=== PATIENT | female | born 1990 | race Caucasian/White ===

== ENCOUNTER → 2017-01-15 | Outpatient (CLI) | payer OTHER ==
[~2017-01-15] MED LIST: ACHYD1T PO; CPR500T PO; FERR-74 PO; IBP800T PO; IBUP-1773 PO; PREN-93 PO; PREN1TAB39; RT-ALBUINH IH; SULF1TAB38 PO
--- OUTSIDE RECORDS SUMMARY | 2017-01-15 15:34 | XMS REPORT | Continuity of Care Document ---
Author Author [facility] Address Unknown Phone Unavailable Allergies Active Description Code Type Severity Reaction Onset Reported/Identified Relationship to Patient Clinical Status Yes No Known Drug Allergies [id number] Drug Allergy Unknown N/ A 02/17/2011 Medications Problems Date Dx Coded Attending Type Code Diagnosis Diagnosed By 03/14/2007 Ot 382.9 03/14/2007 Ot 388.70 07/02/2010 FIDEL SANITATION TRUCK DRIVER, BERNABE R 296.90 MO MOOD DIS NOS 07/02/2010 FIDEL SANITATION TRUCK DRIVER, BERNABE R 466.0 Bronchitis, Acute 07/02/2010 FIDEL SANITATION TRUCK DRIVER, BERNABE R 296.90 MO MOOD DIS NOS 07/02/2010 FIDEL SANITATION TRUCK DRIVER, BERNABE R 466.0 Bronchitis, Acute 07/02/2010 MERIDA DO, ELMIRA K 296.90 MO MOOD DIS NOS 07/02/2010 MERIDA DO, ELMIRA K 466.0 Bronchitis, Acute 07/02/2010 MERIDA DO, ELMIRA K 296.90 MO MOOD DIS NOS 07/02/2010 MERIDA DO, ELMIRA K 466.0 Bronchitis, Acute 02/04/2011 FIDEL SANITATION TRUCK DRIVER, BERNABE R 786.2 Cough 02/04/2011 FIDEL SANITATION TRUCK DRIVER, BERNABE R V72.42 Test Positive Result 02/04/2011 FIDEL SANITATION TRUCK DRIVER, BERNABE R 786.2 Cough 02/04/2011 FIDEL SANITATION TRUCK DRIVER, BERNABE R V72.42 Test Positive Result 02/04/2011 MERIDA DO, ELMIRA K 786.2 Cough 02/04/2011 MERIDA DO, ELMIRA K V72.42 Test Positive Result 02/04/2011 MERIDA DO, ELMIRA K 786.2 Cough 02/04/2011 MERIDA DO, ELMIRA K V72.42 Test Positive Result 02/13/2011 FIDEL SANITATION TRUCK DRIVER, BERNABE R 640.00 Threatened 02/13/2011 FIDEL SANITATION TRUCK DRIVER, BERNABE R 640.00 Threatened 02/13/2011 MERIDA DO, ELMIRA K 640.00 Threatened 02/13/2011 MERIDA DO, ELMIRA K 640.00 Threatened 02/17/2011 Ot 640.03 02/20/2011 Ot 623.8 02/20/2011 Ot 640.03 03/04/2011 BERNABE PARRA APRN R 634.92 Complete (sab) 03/04/2011 FIDEL MYRICK, BERNABE R 634.92 Complete (sab) 03/04/2011 ELMIRA MERIDA DO 634.92 Complete (sab) 03/04/2011 ELMIRA MERIDA DO 634.92 Complete (sab) 04/28/2011 FIDEL SANITATION TRUCK DRIVER, BERNABE R 616.0 Cervicitis And Endocervicitis 04/28/2011 FIDEL SANITATION TRUCK DRIVER, BERNABE R 625.0 DYSPAREUNIA 04/28/2011 FIDEL SANITATION TRUCK DRIVER, BERNABE R V72.31 Performance Improvement Analyst Exam, Routine 04/28/2011 FIDEL CASTAÑEDAN, BERNABE R V74.5 Std Screen 04/28/2011 FIDEL MYRICK, BERNABE R 616.0 Cervicitis And Endocervicitis 04/28/2011 FIDEL MYRICK, BERNABE R 625.0 DYSPAREUNIA 04/28/2011 FIDEL MYRICK, BERNABE R V72.31 Performance Improvement Analyst Exam, Routine 04/28/2011 FIDEL MYRICK, BERNABE R V74.5 Std Screen 04/28/2011 SKYLA MERIDA DOA K 616.0 Cervicitis And Endocervicitis 04/28/2011 FUAD KIDD ELMIRA K 625.0 DYSPAREUNIA 04/28/2011 SKYLA MERIDA DOA K V72.31 Performance Improvement Analyst Exam, Routine 04/28/2011 SKYLA MERIDA DOA K V74.5 Std Screen 04/28/2011 SKYLA MERIDA DOA K 616.0 Cervicitis And Endocervicitis 04/28/2011 FUAD KIDD ELMIRA K 625.0 DYSPAREUNIA 04/28/2011 FUAD KIDD ELMIRA K V72.31 Performance Improvement Analyst Exam, Routine 04/28/2011 FUAD KIDD ELMIRA K V74.5 Std Screen 09/22/2011 FIDEL MYRICK, BERNABE R 625.3 Dysmenorrhea 09/22/2011 FIDEL MYRICK, BERNABE R 786.05 Shortness Of Breath 09/22/2011 FIDEL MYRICK, BERNABE R 625.3 Dysmenorrhea 09/22/2011 FIDEL SANITATION TRUCK DRIVER, BERNABE R 786.05 Shortness Of Breath 09/22/2011 MERIDA DO, ELMIRA K 625.3 Dysmenorrhea 09/22/2011 MERIDA DO, ELMIRA K 786.05 Shortness Of Breath 09/22/2011 MERIDA DO, ELMIRA K 625.3 Dysmenorrhea 09/22/2011 MERIDA DO, ELMIRA K 786.05 Shortness Of Breath 11/16/2011 FIDEL SANITATION TRUCK DRIVER, BERNABE R 626.0 Absence Of Menstruation 11/16/2011 FIDEL SANITATION TRUCK DRIVER, BERNABE R V72.42 Examination Or Test Positive Result 11/16/2011 FIDEL SANITATION TRUCK DRIVER, BERNABE R 626.0 Absence Of Menstruation 11/16/2011 FIDEL SANITATION TRUCK DRIVER, BERNABE R V72.42 Examination Or Test Positive Result 11/16/2011 MERIDA DO, ELMIRA K 626.0 Absence Of Menstruation 11/16/2011 MERIDA DO, ELMIRA K V72.42 Examination Or Test Positive Result 11/16/2011 MERIDA DO, ELMIRA K 626.0 Absence Of Menstruation 11/16/2011 MERIDA DO, ELMIRA K V72.42 Examination Or Test Positive Result 12/15/2011 FIDEL CASTAÑEDAN, BERNABE R V04.81 Flu Dx (3 Yrs And Above, Im) 12/15/2011 FIDEL MYRICK BERNABE R V22.1 , NORMAL OTHER 12/15/2011 FIDEL CASTAÑEDAN, BERNABE R V23.2 , HIGH RISK W/ HX OF 12/15/2011 FIDEL CASTAÑEDAN, BERNABE R V04.81 Flu Dx (3 Yrs And Above, Im) 12/15/2011 FIDEL MYRICK BERNABE R V22.1 , NORMAL OTHER 12/15/2011 FIDEL SANITATION TRUCK DRIVER, BERNABE R V23.2 , HIGH RISK W/ HX OF 12/15/2011 MERIDA DO, ELMIRA K V04.81 Flu Dx (3 Yrs And Above, Im) 12/15/2011 MERIDA DO, ELMIRA K V22.1 , NORMAL OTHER 12/15/2011 MERIDA DO, ELMIRA K V23.2 , HIGH RISK W/ HX OF 12/15/2011 MERIDA DO, ELMIRA K V04.81 Flu Dx (3 Yrs And Above, Im) 12/15/2011 MERIDA DO, ELMIRA K V22.1 , NORMAL OTHER 12/15/2011 ELMIRA MERIDA DO V23.2 , HIGH RISK W/ HX OF 01/05/2012 BERNABE PARRA APRN V76.9 CANCER SCREENING, [facility] 01/05/2012 BERNABE PARRA APRN V76.9 CANCER SCREENING, [facility] 01/05/2012 ELMIRA MERIDA DO V76.9 CANCER SCREENING, [facility] 01/05/2012 ELMIRA MERIDA DO V76.9 CANCER SCREENING, [facility] 01/26/2012 BRENABE PARRA APRN R 564.00 CONSTIPATION 01/26/2012 BERNABE PARRA APRN R 564.00 CONSTIPATION 01/26/2012 ELMIRA MERIDA DO K 564.00 CONSTIPATION 01/26/2012 ELMIRA MERIDA DO 564.00 CONSTIPATION 02/08/2012 BERNABE PARRA APRN R 786.2 Cough 02/08/2012 BERNABE PARRA APRN R 786.2 Cough 02/08/2012 ELMIRA MERIDA DO K 786.2 Cough 02/08/2012 ELMIRA MERIDA DO 786.2 Cough 03/29/2012 BERNABE PARRA APRN R 784.0 Headache 03/29/2012 BERNABE PARRA APRN R 784.0 Headache 03/29/2012 ELMIRA MERIDA DO K 784.0 Headache 03/29/2012 ELMIRA MERIDA DO K 784.0 Headache 07/15/2012 Ot 648.91 OTH CURR COND-DELIVERED 07/15/2012 Ot 659.71 ABN DEL FET HT RT/RHYTHM,W OR W/O MENTIO 07/15/2012 Ot V02.51 GROUP B STREPT CARRIER/SUSPECTED CARRIER 07/15/2012 Ot V06.1 [id number], COMBINED [ 07/15/2012 Ot V27.0 DELIVER-SINGLE LIVEBORN 10/31/2012 Ot 599.0 URIN TRACT INFECTION NOS 10/31/2012 Ot 787.01 NAUSEA WITH VOMITING 11/03/2012 Ot 041.49 OTHER AND UNSPECIFIED ESCHERICHIA COLI [ 11/03/2012 Ot 536.2 PERSISTENT VOMITING 11/03/2012 Ot 590.80 PYELONEPHRITIS NOS 10/31/2014 BERNABE PARRA APRN R 780.4 DIZZINESS AND GIDDINESS 10/31/2014 BERNABE PARRA APRN R 784.0 HEADACHE 10/31/2014 GABRIEL PARRA APRNINA R 780.4 DIZZINESS AND GIDDINESS 10/31/2014 FIDEL CASTAÑEDAN, BERNABE R 784.0 HEADACHE 10/31/2014 FUAD KIDD, ELMIRA K 780.4 DIZZINESS AND GIDDINESS 10/31/2014 MERIDA DO, ELMIRA K 784.0 HEADACHE 10/31/2014 MERIDA DO, ELMIRA K 780.4 DIZZINESS AND GIDDINESS 10/31/2014 FUAD KIDD, ELMIRA K 784.0 HEADACHE 11/27/2014 BERNABE PARRA APRN R V72.42 EXAMINATION OR TEST POSITIVE RESULT 11/27/2014 FUAD KIDD ELMIRA K V72.42 EXAMINATION OR TEST POSITIVE RESULT 11/27/2014 FUAD KIDD, ELMIRA K V72.42 EXAMINATION OR TEST POSITIVE RESULT 12/03/2014 Ot V22.1 12/17/2014 FUAD KIDDSKYLAA K 641.90 COMPL OF - BLEEDING 12/17/2014 FUAD KIDDSKYLAA K V74.5 STD SCREEN 12/17/2014 FUAD KIDDSKYLAA K V76.2 CERVICAL CANCER SCREENING (PAP SMEAR) 12/17/2014 FUAD KIDDSKYLAA K 641.90 COMPL OF - BLEEDING 12/17/2014 FUAD KIDDSKYLAA K V74.5 STD SCREEN 12/17/2014 FUAD KIDDSKYLAA K V76.2 CERVICAL CANCER SCREENING (PAP SMEAR) 04/09/2015 Ot V22.1 04/09/2015 BERNABE PARRA SANITATION TRUCK DRIVER Ot V28.89 04/09/2015 FUAD KIDDELMIRA K Ot 641.93 04/11/2015 MARJORIE GALLARDO A SANITATION TRUCK DRIVER Ot V22.1 04/11/2015 PAULINA MARJORIE A SANITATION TRUCK DRIVER Ot V28.81 04/19/2015 Ot V22.1 04/19/2015 BERNABE PARRA R SANITATION TRUCK DRIVER Ot V28.89 04/19/2015 FUAD KIDDSKYLAA K Ot 641.93 04/19/2015 MARJORIE GALLARDO A SANITATION TRUCK DRIVER Ot V22.1 04/19/2015 PAULINA MARJORIE A SANITATION TRUCK DRIVER Ot V28.81 04/19/2015 BERNABE PARRA R SANITATION TRUCK DRIVER Ot V28.89 04/19/2015 Ot V22.1 04/19/2015 BERNABE PARRA R SANITATION TRUCK DRIVER Ot V28.89 04/19/2015 MERIDA DO, ELMIRA K Ot 641.93 04/19/2015 PAULINA, MARJORIE A SANITATION TRUCK DRIVER Ot V22.1 04/19/2015 PAULINA, MARJORIE A SANITATION TRUCK DRIVER Ot V28.81 04/30/2015 PAULINA, MARJORIE A SANITATION TRUCK DRIVER Ot V22.1 04/30/2015 PAULINA, MARJORIE A SANITATION TRUCK DRIVER Ot V28.81 05/02/2015 BERNABE PARRA R SANITATION TRUCK DRIVER Ot V28.89 05/02/2015 MERIDA DO, ELMIRA K Ot 641.93 05/09/2015 PAULINA, MARJORIE A SANITATION TRUCK DRIVER Ot V22.1 05/09/2015 PAULINA, MARJORIE A SANITATION TRUCK DRIVER Ot V28.81 05/10/2015 MERIDA DO, ELMIRA K Ot V22.1 06/27/2015 RADHA BAHENA MD Ot 079.99 VIRAL INFECTION NOS 06/27/2015 RADHA BAHENA MD Ot 644.03 THRT VALENTINE LABOR-ANTEPART 06/27/2015 RADHA BAHENA MD Ot 647.63 OTH VIRAL DIS-ANTEPARTUM 06/27/2015 RADHA BAHENA MD Ot 079.99 06/27/2015 RADHA BAHENA MD Ot 644.03 06/27/2015 RADHA BAHENA MD Ot 647.63 07/02/2015 Ot V22.1 07/02/2015 BERNABE PARRA SANITATION TRUCK DRIVER Ot V28.89 07/02/2015 MERIDA DO, ELMIRA K Ot 641.93 07/02/2015 PAULINA, MARJORIE A SANITATION TRUCK DRIVER Ot V22.1 07/02/2015 PAULINA, MARJORIE A SANITATION TRUCK DRIVER Ot V28.81 07/02/2015 MERIDA DO, ELMIRA K Ot V22.1 07/02/2015 MERIDA DO, ELMIRA K Ot 648.83 07/02/2015 MERIDA DO, ELMIRA K Ot 648.83 07/02/2015 MERIDA DO, ELMIRA K Ot V22.1 07/02/2015 MERIDA DO, ELMIRA K Ot V22.1 07/20/2015 RADHA BAHENA MD Ot V22.1 SUPERVIS OTH NORMAL PREG 07/31/2015 MERIDA DO, ELMIRA K Ot 285.9 ANEMIA NOS 07/31/2015 FUAD KIDD ELMIRA Duncan Ot 645.11 POST TERM PREG, DELIV W/WO MENTION OF AN 07/31/2015 ELMIRA MERIDA DO Ot 648.21 ANEMIA-DELIVERED 07/31/2015 ELMIRA MERIDA DO Ot 648.81 ABN GLUCOSE CARLOS-DELIV 07/31/2015 SKYLA MERIDA DOA Duncan Ot 648.91 OTH CURR COND-DELIVERED 07/31/2015 SKYLA MERIDA DOA Duncan Ot V02.51 GROUP B STREPT CARRIER/SUSPECTED CARRIER 07/31/2015 ELMIRA MERIDA DO Ot V27.0 DELIVER-SINGLE LIVEBORN 01/20/2016 Ot 625.3 01/20/2016 Ot V22.1 01/20/2016 BERNABE PARRA APRN Ot V28.89 01/20/2016 ELMIRA MERIDA DO Ot 641.93 01/20/2016 MARJORIE GALLARDO SANITATION TRUCK DRIVER Ot V22.1 01/20/2016 MARJORIE GALLARDO SANITATION TRUCK DRIVER Ot V28.81 01/20/2016 ELMIRA MERIDA DO Ot V22.1 01/20/2016 ELMIRA MERIDA DO Ot 648.83 01/20/2016 Ot V22.1 01/20/2016 BERNABE PARRA SANITATION TRUCK DRIVER Ot V28.89 01/20/2016 ELMIRA MERIDA DO Ot 641.93 01/20/2016 MARJORIE GALLARDO SANITATION TRUCK DRIVER Ot V22.1 01/20/2016 MARJORIE GALLARDO SANITATION TRUCK DRIVER Ot V28.81 01/20/2016 ELMIRA MERIDA DO Ot V22.1 01/20/2016 ELMIRA MERIDA DO Ot 648.83 05/25/2016 Ot V22.1 SUPERVIS OTH NORMAL PREG 05/25/2016 BERNABE PARRA SANITATION TRUCK DRIVER Ot V28.89 OTHER SPECIFIED SCREENING 05/25/2016 ELMIRA MERIDA DO Ot 641.93 ANTEPART HEM NOS-ANTEPAR 05/25/2016 MARJORIE GALLARDO SANITATION TRUCK DRIVER Ot V22.1 SUPERVIS OTH NORMAL PREG 05/25/2016 MARJORIE GALLARDO SANITATION TRUCK DRIVER Ot V28.81 ENCOUNTER FOR ANATOMIC SURVEY 05/25/2016 ELMIRA MERIDA DO Ot V22.1 SUPERVIS OTH NORMAL PREG 05/25/2016 ELMIRA MERIDA DO Ot 648.83 ABN GLUCOSE-ANTEPARTUM 05/25/2016 ELMIRA MERIDA DO Ot 648.83 ABN GLUCOSE-ANTEPARTUM 05/25/2016 ELMIRA MERIDA DO Ot V22.1 SUPERVIS OTH NORMAL PREG 05/25/2016 ELMIRA MERIDA DO Ot 648.83 ABN GLUCOSE-ANTEPARTUM 05/25/2016 ELMIRA MERIDA DO Ot V22.1 SUPERVIS OTH NORMAL PREG 06/19/2016 ELMIRA MERIDA DO Ot V22.1 SUPERVIS OTH NORMAL PREG 06/19/2016 ELMIRA MERIDA DO Ot 648.83 ABN GLUCOSE-ANTEPARTUM Procedures Code Description Performed By Performed On 72.1 07/13/2012 60230 UA W/ CULTURE IF INDICATED 10/31/2014 13873 TEST, URINE (IN-HOUSE) 10/31/2014 80540 CULTURE URINE 75206 OB - EARLY <14 WEEKS 11/27/2014 68916 TEST, URINE (IN-HOUSE) 11/27/2014 91002 UA OB DIP 2014 73.4 07/29/2015 73.59 07/29/2015 Results Encounters ACCT No. Visit Date/Time Discharge Status Pt. Type Provider Facility Loc./Unit Complaint [id number] 02/04/2015 14:10:00 02/04/2015 23: 59:59 CLS Outpatient ELMIRA MERIDA DO [id number] 12/17/2014 14:11:00 12/17/2014 23: 59:59 CLS Outpatient ELMIRA MERIDA DO [id number] 11/27/2014 13:47:00 11/27/2014 23: 59:59 CLS Outpatient BERNABE PARRA APRN [id number] 10/31/2014 13:41:00 10/31/2014 23: 59:59 CLS Outpatient BERNABE PARRA APRN
--- NOTE | 2017-01-15 16:09 | Diagnostic Imaging Report ---
PROCEDURE: US OB single fetus <14 wks. TECHNIQUE: Multiple real-time grayscale images were obtained over the gravid uterus in various projections. INDICATION: Threatened miscarriage. FINDINGS: Uterus measures 9.7 x 5.5 x 6.6 cm. Endometrial stripe is 12 mm. There is no evidence of intrauterine . Transvaginal imaging failed to demonstrate the ovaries. There is no free fluid or adnexal masses demonstrated. IMPRESSION: No findings are seen to suggest intrauterine at this time. Dictated by: Dictated on workstation # [id number]
== END ==
LOC: RAD 15:27
PROVIDERS: ATTEND Family Medicine
DX: O20.0 Threatened abortion (principal)
CPT/HCPCS: 36415; 76801; 84702

== ENCOUNTER 2023-02-13 22:48 | Emergency (ER) | payer BC ==
[~2023-02-13] VITALS: Ht 167 cm; Wt 72.5 kg
[~2023-02-13 22:48] MED LIST changes: -FERR-74 PO; +FERR325T18 PO
[2023-02-13] MEDS ORDERED: LACTATED RINGERS 1,000 ML IV ONE (23:15)
[2023-02-13 23:44] LABS: BILIRUBIN,URINE NEGATIVE (NEGATIVE); CLARITY,URINE CLEAR; COLOR,URINE YELLOW; GLUCOSE, URINE (UA) NEGATIVE (NEGATIVE); KETONES,URINE NEGATIVE (NEGATIVE); LEUKOCYTE ESTERASE ,URINE NEGATIVE (NEGATIVE); NITRITE,URINE NEGATIVE (NEGATIVE); PROTEIN,URINE NEGATIVE (NEGATIVE)
--- NOTE | 2023-02-13 23:48 | ED Psychosocial ---
General Stated Complaint: ATE EDIBLE - SUICIDAL IDEATION Source: patient History of Present Illness Date Seen by Provider: Feb 13, 2023 Time Seen by Provider: 22:57 Initial Comments PT ARRIVES VIA POV FROM HOME WITH MOTHER PT STATES SHE ATE AN "EDIBLE" MARIJUANA THAT SHE GOT FROM A GAS STATION AROUND 2100 SHE STATES SHE IS FEELING SUICIDAL BUT DOES NOT HAVE A PLAN SHE DENIES ANY PRIOR USE OF ANY DRUGS, SHE ADMITS TO ALCOHOL USE, BUT NONE TONIGHT SHE STATES SHE IS FEELING DIZZY AND WEAK AND TIRED. SHE IS ALSO VERY ANXIOUS NO NAUSEA/VOMITING/DIARRHEA OR ABDOMINAL PAIN C/O DRY MOUTH AND IS CONSTANTLY LICKING HER LIPS SHE HAS HAD PRIOR SUICIDAL THOUGHTS, BUT NO PRIOR ATTEMPT. DENIES ANY SPECIFIC TRIGGER. IS AT HOME WITH 2 CHILDREN LMP --ENDED ON WEDNESDAY, NORMAL. NO CONTROL PCP: [facility] Allergies and Home Medications Allergies Coded Allergies: No Known Drug Allergies (Unverified , 02/17/11) Patient Home Medication List Home Medication List Reviewed: Yes Ferrous Sulfate (Ferrous Sulfate) 325 Mg Tablet, 325 MG PO DAILY Prescribed by: ELMIRA MERIDA on 07/31/15 0855 Ibuprofen (Ibuprofen) 600 Mg Tablet, 600 MG PO Q6H Prescribed by: ELMIRA MERIDA on 07/31/15 0855 Pnv95/Ferrous Fumarate/FA ( Multivitamins Tablet) 1 Each Tablet, 1 EACH PO DAILY Prescribed by: KRISTAL JEAN on 06/27/15 1348 Review of Systems Constitutional: see HPI, dizziness, malaise, weakness EENTM: no symptoms reported Respiratory: no symptoms reported Cardiovascular: no symptoms reported Gastrointestinal: no symptoms reported Genitourinary: no symptoms reported Musculoskeletal: no symptoms reported Skin: no symptoms reported Psychiatric/Neurological: See HPI, Anxiety Past Qfqotow-Pfaeek-Khvmud Hx Patient Social History Tobacco Use?: No Additional substance use comme: HAD "EDIBLE" MARIJUANA 02/13/23 Alcohol Use?: Yes Alcohol Frequency: Once in a while Immunizations Up To Date Tetanus Booster (TDap): Less than 5yrs Past Medical History Surgeries: No Respiratory: No Cardiac: No Neurological: No Hx : 3 Hx Para: 2 Hx Total # of Abortions (Sp): 1 (ELECTIVE AB) Reproductive Disorders: No Sexually Transmitted Disease: No Genitourinary: No Gastrointestinal: No Musculoskeletal: No Endocrine: No HEENT: No Cancer: No Psychosocial: Yes (SUICIDAL IDEATION) Integumentary: No Blood Disorders: No Adverse Reaction/Blood Tranf: No Family Medical History Patient reports no known family medical history. Physical Exam Vital Signs - First Documented 02/13/23 23:00 Temp 36.7 Pulse 131 Resp 16 B/P (MAP) 133/85 (101) Pulse Ox 100 O2 Delivery Room Air Capillary Refill : Height, Weight, BMI Height: 5'4.00" Weight: 202lbs. oz. 91.122594wy; BMI Method:Estimated General Appearance: WD/WN, other (ANXIOUS, TREMULOUS, KEEPS EYES CLOSED, CONSTANT LIP LICKING) HEENT: PERRL/EOMI, other (LIPS CRACKED AND DRIED) Neck: normal inspection Respiratory: normal breath sounds, other (HYPERVENTILATING ON ARRIVAL) Cardiovascular: no murmur, tachycardia Gastrointestinal: non tender, soft Extremities: normal inspection, normal capillary refill Neurologic/Psychiatric: no motor/sensory deficits, alert, oriented x 3 Appearance/Memory: no memory impairment Behavior/Eye Contact: cooperative, avoids eye contact Thoughts/Hallucinations: no apparent hallucination Skin: normal color, warm/dry Progress/Results/Core Measures Results/Orders Lab Results Laboratory Tests Test 02/13/23 23:36 02/13/23 23:39 02/13/23 23:44 Range/Units Urine Color YELLOW Urine Clarity CLEAR Urine pH 6.0 5-9 Urine Specific [place] 1.025 H 1.016-1.022 Urine Protein NEGATIVE NEGATIVE Urine Glucose (UA) NEGATIVE NEGATIVE Urine Ketones NEGATIVE NEGATIVE Urine Nitrite NEGATIVE NEGATIVE Urine Bilirubin NEGATIVE NEGATIVE Urine Urobilinogen 0.2 < = 1.0 MG/DL Urine Leukocyte Esterase NEGATIVE NEGATIVE Urine RBC (Auto) NEGATIVE NEGATIVE Urine RBC NONE /HPF Urine WBC NONE /HPF Urine Crystals NONE /LPF Urine Bacteria NEGATIVE /HPF Urine Casts NONE /LPF Urine Mucus NEGATIVE /LPF Urine Culture Indicated NO Urine Opiates Screen NEGATIVE NEGATIVE Urine Oxycodone Screen NEGATIVE NEGATIVE Urine Methadone Screen NEGATIVE NEGATIVE Urine Propoxyphene Screen NEGATIVE NEGATIVE Urine Barbiturates Screen NEGATIVE NEGATIVE Ur Tricyclic Antidepressants Screen NEGATIVE NEGATIVE Urine Phencyclidine Screen NEGATIVE NEGATIVE Urine Amphetamines Screen NEGATIVE NEGATIVE Urine Methamphetamines Screen NEGATIVE NEGATIVE Urine Benzodiazepines Screen NEGATIVE NEGATIVE Urine Cocaine Screen NEGATIVE NEGATIVE Urine Cannabinoids Screen POSITIVE H NEGATIVE Influenza Type A (RT-PCR) Not Detected Not Detecte Influenza Type B (RT-PCR) Not Detected Not Detecte SARS-CoV-2 RNA (RT-PCR) Not Detected Not Detecte White Blood Count 6.5 4.3-11.0 10^3/uL Red Blood Count 4.46 3.80-5.11 10^6/uL Hemoglobin 13.0 11.5-16.0 g/dL Hematocrit 39 35-52 % Mean Corpuscular Volume 87 80-99 fL Mean Corpuscular Hemoglobin 29 25-34 pg Mean Corpuscular Hemoglobin Concent 34 32-36 g/dL Red Cell Distribution Width 12.5 10.0-14.5 % Platelet Count 256 130-400 10^3/uL Mean Platelet Volume 9.3 9.0-12.2 fL Immature Granulocyte % (Auto) 0 % Neutrophils (%) (Auto) 52 42-75 % Lymphocytes (%) (Auto) 36 12-44 % Monocytes (%) (Auto) 9 0-12 % Eosinophils (%) (Auto) 3 0-10 % Basophils (%) (Auto) 0 0-10 % Neutrophils # (Auto) 3.4 1.8-7.8 10^3/uL Lymphocytes # (Auto) 2.3 1.0-4.0 10^3/uL Monocytes # (Auto) 0.6 0.0-1.0 10^3/uL Eosinophils # (Auto) 0.2 0.0-0.3 10^3/uL Basophils # (Auto) 0.0 0.0-0.1 10^3/uL Immature Granulocyte # (Auto) 0.0 0.0-0.1 10^3/uL Percent Immature Platelet Fraction 1.3 0.0-7.6 % Sodium Level 138 135-145 MMOL/L Potassium Level 4.1 3.6-5.0 MMOL/L Chloride Level 106 98-107 MMOL/L Carbon Dioxide Level 20 L 21-32 MMOL/L Anion Gap 12 5-14 MMOL/L Blood Urea Nitrogen 19 H 7-18 MG/DL Creatinine 0.87 0.60-1.30 MG/DL Estimat Glomerular Filtration Rate 90 BUN/Creatinine Ratio 22 Glucose Level 138 H 70-105 MG/DL Calcium Level 9.2 8.5-10.1 MG/DL Corrected Calcium 9.2 8.5-10.1 MG/DL Total Bilirubin 0.1 0.1-1.0 MG/DL Aspartate Amino Transf (AST/SGOT) 17 5-34 U/L Alanine Aminotransferase (ALT/SGPT) 25 0-55 U/L Alkaline Phosphatase 60 40-136 U/L Total Protein 7.0 6.4-8.2 GM/DL Albumin 4.0 3.2-4.5 GM/DL Salicylates Level < 5.0 L 5.0-20.0 MG/DL Acetaminophen Level < 10 L 10-30 UG/ML Serum Alcohol < 10 <10 MG/DL My Orders Orders - NAVA FERNANDEZ DO Ed Iv/Invasive Line Start (02/13/23 22:58) Urine Bedside (02/13/23 22:58) Ekg Tracing (02/13/23 22:58) Monitor-Rhythm Ecg Trace Only (02/13/23 22:58) Cbc With Automated Diff (02/13/23 22:58) Comprehensive Metabolic Panel (02/13/23 22:58) Covid 19 Inhouse Test (02/13/23 22:58) Alcohol (02/13/23 22:58) Drug Screen Stat (Urine) (02/13/23 22:58) Ua Culture If Indicated (02/13/23 22:58) Influenza A And B By Pcr (02/13/23 22:58) Isolation Central Supply Req (02/13/23 22:58) Ed Iv/Invasive Line Start (02/13/23 23:12) Lactated Ringers (Lr 1000 Ml Iv Solution (02/13/23 23:15) Salicylate (02/13/23 23:44) Acetaminophen (02/13/23 23:44) Ed Iv/Invasive Line Start (02/14/23 00:39) Lactated Ringers (Lr 1000 Ml Iv Solution (02/14/23 00:45) Medications Given in ED Current Medications Medications Dose Ordered Sig/Moni Route Start Time Stop Time Status Last Admin Dose Admin Lactated Ringer's 1,000 ml @ 0 mls/hr Q0M ONCE IV 02/13/23 23:15 02/13/23 23:16 DC 02/13/23 23:40 0 MLS/HR Lactated Ringer's 1,000 ml @ 0 mls/hr Q0M ONCE IV 02/14/23 00:45 02/14/23 00:46 DC 02/14/23 01:12 0 MLS/HR Vital Signs/I&O 02/13/23 23:00 Temp 36.7 Pulse 131 Resp 16 B/P (MAP) 133/85 (101) Pulse Ox 100 O2 Delivery Room Air Progress Progress Note : Progress Note PLACED IN SECURE ROOM GIVEN: IV FLUIDS 0045--RN CONTACTING SAVE LINE 0250--MENTAL HEALTH SCREEN COMPLETE. PT IS NO LONGER SUICIDAL, AND FEELS FINE NOW, JUST FEELS TIRED. PT IS BEING SENT HOME WITH A SAFETY PLAN. 0315--HAVE RECEIVED SAFETY PLAN FROM MENTAL HEALTH SCREENER. PT STATES SHE FEELS MUCH BETTER AT TIME OF DISMISSAL, SHE IS NO LONGER TREMULOUS, SHE FEELS COMFORTABLE GOING H9OME. HR DOWN TO LESS THAN 100, BP STABLE DISCUSSED TEST RESULTS, AND PLAN OF CARE WITH PT AND MOTHER, AND ARE AGREEABLE TO PLAN. REVIEWED PRIOR RECORDS--MOST ARE ADMITS FOR , WITH ONE ADMIT FOR P YELONEPHRITIS. NO VISITS HERE SINCE DELIVERY IN 2014. Initial ECG Impression Date: Feb 13, 2023 Initial ECG Impression Time: 23:09 Initial ECG Rate: 125 Initial ECG Rhythm: S.Tach Initial ECG Impression: Nonspecific Changes Initial ECG Comparisson: No Previous ECG Available Comment INTERPRETED BY ME Departure Impression Primary Impression: Suicidal ideation Additional Impression: INGESTION OF MARIJUANA EDIBLE Disposition: 01 HOME, SELF-CARE Condition: Stable Departure-Patient Inst. Decision time for Depature: 02:55 Referrals: NO,LOCAL PHYSICIAN (PCP/Family) Primary Care Physician Patient Instructions: Marijuana Use and Addiction (DC), Suicide Prevention, ALCOHOL AND SUBSTANCE ABUSE Add. Discharge Instructions: NO DRUGS OR ALCOHOL LOTS OF FLUIDS FOLLOW UP WITH MENTAL HEALTH ARRANGED. RETURN TO ER IF YOUR SYMPTOMS WORSEN. NAVA FERNANDEZ DO Feb 13, 2023 23:47
[2023-02-13 23:56] LABS: BASOPHILS % (AUTO) 0 % (0-10); EOSINOPHILS # (AUTO) 0.2 10^3/uL (0.0-0.3)
[2023-02-13 23:58] LABS: EOSINOPHILS % (AUTO) 3 % (0-10); HEMATOCRIT 39 % (35-52); LYMPHOCYTES # (AUTO) 2.3 10^3/uL (1.0-4.0); LYMPHOCYTES % (AUTO) 36 % (12-44); MEAN CORPUSCULAR HEMOGLOBIN 29 pg (25-34); MEAN CORPUSCULAR HGB CONC 34 g/dL (32-36); MEAN CORPUSCULAR VOLUME 87 fL (80-99); MEAN PLATELET VOLUME 9.3 fL (9.0-12.2); MONOCYTES # (AUTO) 0.6 10^3/uL (0.0-1.0); MONOCYTES % (AUTO) 9 % (0-12); NEUTROPHILS # (AUTO) 3.4 10^3/uL (1.8-7.8); NEUTROPHILS % (AUTO) 52 % (42-75); PLATELET COUNT 256 10^3/uL (130-400); WHITE BLOOD COUNT 6.5 10^3/uL (4.3-11.0)
[2023-02-14 00:15] LABS: BACTERIA,URINE NEGATIVE /HPF
[2023-02-14 00:15] LABS: CHLORIDE 106 MMOL/L (98-107); POTASSIUM 4.1 MMOL/L (3.6-5.0); SODIUM 138 MMOL/L (135-145)
[2023-02-14 00:16] LABS: CALCIUM 9.2 MG/DL (8.5-10.1)
[2023-02-14 00:18] LABS: GLUCOSE 138 MG/DL (70-105)
[2023-02-14 00:19] LABS: CARBON DIOXIDE 20 MMOL/L (21-32)
[2023-02-14 00:20] LABS: BILIRUBIN,TOTAL 0.1 MG/DL (0.1-1.0)
[2023-02-14 00:21] LABS: ALKALINE PHOSPHATASE 60 U/L (40-136); CREATININE SERUM 0.87 MG/DL (0.60-1.30); GFR ESTIMATED 90
[2023-02-14 00:23] LABS: AMPHETAMINE SCREEN, URINE NEGATIVE (NEGATIVE); BARBITURATE SCREEN URINE NEGATIVE (NEGATIVE); BENZODIAZEPINES SCREEN URINE NEGATIVE (NEGATIVE); CANNABINOID SCREEN, URINE POSITIVE (NEGATIVE); COCAINE SCREEN URINE NEGATIVE (NEGATIVE); METHADONE STAT NEGATIVE (NEGATIVE); OPIATE SCREEN URINE NEGATIVE (NEGATIVE); OXYCODONE STAT NEGATIVE (NEGATIVE); PROPOXYPHENE STAT NEGATIVE (NEGATIVE); TRICYCLIC ANTIDEPRESSANTS SCRE NEGATIVE (NEGATIVE)
[2023-02-14 00:23] LABS: BUN/CREATININE RATIO 22
[2023-02-14 00:24] LABS: SALICYLATE < 5.0 MG/DL (5.0-20.0)
[2023-02-14 00:25] LABS: ALANINE AMINOTRANSFERASE 25 U/L (0-55)
[2023-02-14 00:28] LABS: ACETAMINOPHEN < 10 UG/ML (10-30)
[2023-02-14] MEDS ORDERED: LACTATED RINGERS 1,000 ML IV ONE (00:45)
[2023-02-14 03:40] VITALS: BP 114/85
== END 2023-02-14 03:40 | disposition home or self-care (01) ==
LOC: EDUNIT# 22:48 → ER 22:50
DX: R42 Dizziness and giddiness (principal); R53.1 Weakness; R53.83 Other fatigue; R06.4 Hyperventilation; T40.712A Poisoning by cannabis, intentional self-harm, initial encounter; Z28.310 Unvaccinated for COVID-19; Z20.822 Contact with and (suspected) exposure to COVID-19
CPT/HCPCS: 80053; 80306; 81000; 84703; 85025; 87636; 93041; 99284; G0480 ×3; 36415; 80320; 80329; 93005